=== PATIENT | male | born 1980 | race Caucasian/White ===

== ENCOUNTER 2017-05-05 08:17 | Emergency (ER) | payer SELFPAY ==
[~2017-05-05] VITALS: Ht 170.2 cm; Wt 72.0 kg
[~2017-05-05 08:17] MED LIST: MOTRIN PO
[2017-05-05] MEDS ORDERED: IBUPROFEN 600MG TABLET PO ONE (09:00)
[2017-05-05 10:37] VITALS: BP 121/76
== END 2017-05-05 10:38 | disposition home or self-care (01) ==
LOC: ER 08:30
DX: R51 Headache (principal); F12.10 Cannabis abuse, uncomplicated; F15.10 Other stimulant abuse, uncomplicated; W22.8XXA Striking against or struck by other objects, initial encounter; Y93.89 Activity, other specified; Y92.89 Other specified places as the place of occurrence of the external cause; Y99.8 Other external cause status
CPT/HCPCS: 70450; 99284

== ENCOUNTER 2017-05-07 11:10 | Emergency (ER) | payer SELFPAY ==
[~2017-05-07] VITALS: Ht 175.3 cm; Wt 75.0 kg
[2017-05-07 12:13] LABS: BASOPHILS % 0.2 % (0.0-2.0); HEMATOCRIT. 49.1 % (42.0-52.0); HEMOGLOBIN. 16.9 g/dL (14.0-18.0); LYMPHOCYTES % 19.1 % (20.0-50.0); MEAN CORPUSCULAR HEMOGLOBIN 31.5 pg (28.0-32.0); MEAN CORPUSCULAR VOLUME 91.4 fL (80.0-94.0); MEAN PLATELET VOLUME 7.8 fl (7.4-10.4); MONOCYTES % 7.3 % (2.0-8.0); NEUTROPHILS % 72.4 % (40.0-76.0); PLATELET 275 x1000/uL (130-400); RED BLOOD CELL COUNT 5.37 mill/uL (4.7-6.1); RED CELL DISTRIBUTION WIDTH 13.1 % (11.6-14.6)
[2017-05-07 12:19] LABS: CHLORIDE 105 mEq/L (98-107); ETHANOL BLOOD < 10 mg/dL
[2017-05-07] MEDS ORDERED: ACETAMINOPHEN 325MG TABLET PO ONE (13:30)
[2017-05-07 14:11] LABS: *AMPHETAMINES SCREEN URINE PRESUMTIVE POSITIVE (NEGATIVE); *BARBITURATES SCREEN URINE NEGATIVE (NEGATIVE); *BENZODIAZEPINES SCREEN URINE NEGATIVE (NEGATIVE); *COCAINE SCREEN URINE NEGATIVE (NEGATIVE); CANNABINOID URINE SCREEN PRESUMTIVE POSITIVE (NEGATIVE); METHADONE URINE SCREEN NEGATIVE (NEGATIVE); OPIATES URINE SCREEN NEGATIVE (NEGATIVE); PHENCYCLIDINE URINE SCREEN NEGATIVE (NEGATIVE)
[2017-05-07 14:45] VITALS: BP 138/82
== END 2017-05-07 15:09 | disposition home or self-care (01) ==
LOC: ER 11:17
DX: F15.10 Other stimulant abuse, uncomplicated (principal); Z00.00 Encounter for general adult medical examination without abnormal findings; R51 Headache; F12.10 Cannabis abuse, uncomplicated; I10 Essential (primary) hypertension; F17.200 Nicotine dependence, unspecified, uncomplicated
CPT/HCPCS: 36415; 70450; 72125; 80048; 80305; 80307; 80329; 85025; 99285; G0482